=== PATIENT | male | born 1980 | race Caucasian/White ===

== ENCOUNTER 2016-06-15 21:53 | Emergency (ER) | payer OTHER ==
--- NOTE | ~2016-06-15 | US115 ---
[facility] A Service of [facility] RADIOLOGY TEXT RESULTS PATIENT: JOHNNY EVANS LOCATION: [facility] : 84 UNIT #: [id number] AGE: [address]: Kaleb Caicedo DO SEX: M ORDER DR: [id number] [facility] [address]. [place], [place] [address] [id number] E MR#: [id number] Acc #: [id number] NAME: JOHNNY EVANS. : 1980 SEX: M STUDY DATE/TIME: 06/15/2016 22:11 UNIT: [facility] ROOM: STUDY DESCRIPTION: US Scrotum and Contents Attending Physician: Kaleb Caicedo D.O. Ordering Physician: Kaleb Caicedo D.O. Primary Care Physician: Primary Care Physician No MEDICAL IMAGING REPORT This report is preliminary unless electronic signature is present EXAM Bilateral scrotal ultrasound with Doppler imaging DATE: 06/15/2016 HISTORY Pain and swelling of the left testis for 2 days. No recent trauma. COMPARISON None. FINDINGS Right testicle measures 3.2 cm x 4.2 cm x 2.3 cm. Left testicle measures 2.4 cm x 4.5 cm x 2.6 cm. Both testicles demonstrate normal color and spectral Doppler flow. Both testicles demonstrate normal homogeneous echotexture without hyperemic changes. There is a large mildly complex left scrotal hydrocele containing thin internal septations. Left scrotal hydrocele measures approximately 4.4 cm x 5.4 cm x 3.6 cm. The left epididymis appears enlarged, heterogeneous, with hypervascularity suggesting features of epididymitis. No left scrotal varicocele is seen. The right epididymis appears unremarkable. There is trace right scrotal hydrocele. No right varicocele was identified. IMPRESSION 1. Large mildly complex left scrotal hydrocele. 2. Features of left epididymitis. 3. Trace right scrotal hydrocele. 4. Normal sonographic appearance of each testicle. Normal flow was documented within each testicle. [facility] A Service of [facility] RADIOLOGY TEXT RESULTS PATIENT: JOHNNY EVANS LOCATION: [facility] #: [id number] : [birth year] UNIT #: [id number] AGE: [address]: Kaleb Caicedo DO SEX: M ORDER DR: Dictated by... Amy Garcia M.D. THIS IS AN ELECTRONICALLY VERIFIED REPORT Amy Garcia M.D. at 06/17/2016 10:02 PM CHELSEA/gunner TD: 06/16/2016 04:41 JOB #: [id number] MEDICAL IMAGING REPORT Page 1 of 1 COPY
[~2016-06-15 21:53] MED LIST: BACTRIM DS TABL1 TA1 PO; FLEXERIL PO; KEFLEX500 MG PO; ULTRAM PO; VICODIN 5/1 TAB 5/50 PO
[2016-06-15 21:57] LABS: BASOPHIL# 0.1 X10e3 (0-0.3); EOSINOPHIL# 0.2 X10e3 (0-0.7); EOSINOPHIL% 1.6 % (0.0-7.0); HEMOGLOBIN 14.2 gm/dL (13.0-16.0); LYMPHOCYTE# 2.2 X10e3 (1.0-3.5); LYMPHOCYTE% 24.1 % (17.0-45.0); MEAN CORPUSCULAR HEMOGLOBIN 28.8 PG (28-34); MEAN CORPUSCULAR HGB CONC 33.1 g/dL (30-36); MEAN PLATELET VOLUME 7.9 FL (6.5-11.5); MONOCYTE# 0.6 X10e3 (0-1.0); MONOCYTE% 6.2 % (3.0-12.0); NEUTROPHIL# 6.1 X10e3 (1.5-7.1); NEUTROPHIL% 67.1 % (40-75); PLATELET COUNT 289 X10e3 (140-420); RED BLOOD COUNT 4.94 X10e (3.90-5.60); RED CELL DISTRIBUTION WIDTH 13.9 % (11.0-15.5); WHITE BLOOD COUNT 9.1 X10e3 (4.0-10.5)
[2016-06-15 21:58] LABS: DIFF IND NO
[2016-06-15 22:18] LABS: BUN/CREATININE RATIO 14.28; CALCIUM SERUM 9.3 mg/dL (8.4-10.2); CREATININE SERUM 0.7 mg/dL (0.6-1.4); GLOM FILT RATE Estimated 123.2 mL/min (>60); POTASSIUM 4.6 mmol/L (3.5-5.1)
[2016-06-15 23:31] LABS: URINE SOURCE CLEAN CATCH
[2016-06-15 23:38] LABS: URINE APPEARANCE CLEAR; URINE BILIRUBIN NEG (NEG); URINE BLOOD NEG (NEG); URINE COLOR YELLOW; URINE GLUCOSE NEG (NEG); URINE KETONE NEG (NEG); URINE LEUKOCYTE ESTERASE TRACE (NEG); URINE NITRATE NEG (NEG); URINE PH 7.5 (5-8); URINE PROTEIN NEG (NEG); URINE SPECIFIC GRAVITY 1.009 (1.003-1.035); URINE UROBILINOGEN 0.2 MG/DL (NEG)
[2016-06-15 23:40] LABS: CULTURE INDICATED? YES; URBCS1 AUWI 0-2 /[HPF] (0-2); URINE BACTERIA AUWI NEG (NEGATIVE); URINE SQUAMOUS EPITHELIAL CELL NONE SEEN /[HPF]
[2016-06-17 20:57] LABS: CHLAMYDIA TRACH Not Detected (Not Detected); N GONOR Detected (Not Detected)
== END 2016-06-16 02:20 | disposition home or self-care (01) ==
LOC: CED 21:53
PROVIDERS: Emergency Medicine
DX: N45.1 Epididymitis (principal); N43.3 Hydrocele, unspecified; I10 Essential (primary) hypertension; F17.200 Nicotine dependence, unspecified, uncomplicated
CPT/HCPCS: 36415; 76870; 80048; 81003; 85025; 87086; 87491; 87591; 93976; 96372; 96374; 99284; J0696; J1885